=== PATIENT | female | born 1975 | race Caucasian/White ===

== ENCOUNTER 2019-07-10 10:21 | Outpatient (CLI) | payer OTHER ==
[2019-07-10] MEDS ORDERED: None per pt (10:42)
[2019-07-10 11:16] LABS: BASOPHILS # (AUTO) 0.05 x10^3/uL (0-0.1); BASOPHILS % (AUTO) 1 % (0-1); EOSINOPHILS # (AUTO) 0.04 x10^3/uL (0-0.4); EOSINOPHILS % (AUTO) 0 % (1-7); LYMPHOCYTES # (AUTO) 1.39 x10^3/uL (1-3.4); LYMPHOCYTES % (AUTO) 15 % (22-44); MD NO; MEAN CORPUSCULAR HEMOGLOBIN 30.5 pg (27.0-34.8); MEAN CORPUSCULAR HGB CONC 32.7 g/dL (32.4-35.8); MEAN CORPUSCULAR VOLUME 93.3 fL (80-100); MEAN PLATELET VOLUME 9.8 fL (7.4-10.4); MONOCYTES # (AUTO) 0.69 x10^3/uL (0.2-0.8); MONOCYTES % (AUTO) 8 % (2-9); NEUTROPHILS # (AUTO) 6.92 x10^3/uL (1.8-6.8); NEUTROPHILS % (AUTO) 76 % (42-75); PLATELET COUNT 251 x10^3/uL (130-400); RED BLOOD COUNT 4.92 x10^6/uL (3.82-5.3); RED CELL DISTRIBUTION WIDTH 13.8 % (9.6-15.2)
[2019-07-10 11:21] LABS: MICROSCOPIC NOT IND
[2019-07-10 11:24] LABS: CULTURE INDICATED? NO
[2019-07-10 11:24] LABS: ALANINE AMINOTRANSFERASE 28 U/L (12-78); ALBUMIN 3.8 g/dL (3.4-5.0); ANION GAP 4 mmol/L (5-15); CHLORIDE 106 mmol/L (98-107); CREATININE 0.72 mg/dL (0.55-1.02)
[2019-07-10 11:29] LABS: ALKALINE PHOSPHATASE 74 U/L (45-117); BILIRUBIN,TOTAL 0.5 mg/dL (0.2-1.0); TOTAL PROTEIN 7.5 g/dL (6.4-8.2)
== END 2019-07-10 23:59 | disposition home or self-care (01) ==
LOC: STAR 10:21
PROVIDERS: ATTEND Obstetrics & Gynecology
DX: Z01.818 Encounter for other preprocedural examination (principal); N84.0 Polyp of corpus uteri; N92.0 Excessive and frequent menstruation with regular cycle
CPT/HCPCS: 36415; 80053; 81003; 84702; 85025

== ENCOUNTER 2019-07-18 05:37 | Day surgery (SDC) | payer OTHER ==
[~2019-07-18] VITALS: Ht 185.4 cm; Wt 106.0 kg
[~2019-07-18 05:37] MED LIST: None per pt
[2019-07-18 06:06] VITALS: BP 133/83
[2019-07-18] MEDS ORDERED: LACTATED RINGERS 1,000 ML IV SCH (06:07)
[2019-07-18] MEDS ORDERED: DIAZEPAM 5 MG TABLET ONE (06:23)
[2019-07-18] MEDS ORDERED: ACETAMINOPHEN 500 MG TABLET ONE (06:24)
[2019-07-18 06:28] LABS: HCG UR SG 1.024 (1.003-1.030)
[2019-07-18] MEDS ORDERED: ACETAMINOPHEN 500 MG TABLET PO ONE (06:30)
[2019-07-18] MEDS ORDERED: DIAZEPAM 5 MG TABLET PO ONE (06:30)
[2019-07-18] MEDS ORDERED: BUPIVACAINE/PF 0.25% ONE (06:52)
[2019-07-18] MEDS ORDERED: SILVER NITRATE STICK TP ONE (06:52)
[2019-07-18] MEDS ORDERED: MIDAZOLAM 1 MG/ML, 2ML ONE (06:53)
[2019-07-18] MEDS ORDERED: EPINEPHRINE 1 MG/ML, 1ML ONE (06:53)
[2019-07-18] MEDS ORDERED: FENTANYL PF 100 MCG/2ML ONE ×2 (06:53→07:51)
[2019-07-18] MEDS ORDERED: CEFAZOLIN 1,000 MG ONE (07:24)
[2019-07-18] MEDS ORDERED: GLYCOPYRROLATE 0.2MG/1ML, 5ML ONE (07:24)
[2019-07-18] MEDS ORDERED: DEXAMETHASONE 4 MG/ML, 1ML ONE (07:24)
[2019-07-18] MEDS ORDERED: KETOROLAC 30 MG/1 ML ONE (07:24)
[2019-07-18] MEDS ORDERED: SUCCINYLCHOLINE 20 MG/ML, 10ML ONE (07:24)
[2019-07-18] MEDS ORDERED: ROCURONIUM 10MG/ML,5ML ONE (07:24)
[2019-07-18] MEDS ORDERED: ONDANSETRON 2MG/ML, 2ML ONE (07:24)
[2019-07-18] MEDS ORDERED: PROPOFOL 10 MG/ML, 20ML ONE (07:24)
[2019-07-18] MEDS ORDERED: NEOSTIGMINE 1 MG/ML, 10ML ONE (07:24)
[2019-07-18] MEDS ORDERED: ONDANSETRON 2MG/ML, 2ML IV PRN (07:30)
[2019-07-18] MEDS ORDERED: HYDROmorphone 2 MG/ML, 1ML IVPush PRN (07:30)
[2019-07-18] MEDS ORDERED: DIAZEPAM 5 MG/ML, 2ML IVPush PRN (07:30)
[2019-07-18] MEDS ORDERED: OXYcodone 5 MG/5 ML ORAL.SOL UDC PO PRN (07:30)
[2019-07-18] MEDS ORDERED: FENTANYL PF 100 MCG/2ML IV PRN (07:30)
[2019-07-18] MEDS ORDERED: PROMETHAZINE 25 MG SUPP PR PRN (07:30)
[2019-07-18] MEDS ORDERED: PROMETHAZINE 25 MG/ML, 1ML IV PRN (07:30)
[2019-07-18] MEDS ORDERED: ONDANSETRON ODT 8 MG PO PRN (07:30)
[2019-07-18] MEDS ORDERED: LIDOCAINE 4%, 4 ML SYR/CANN TP ONE (07:33)
== END 2019-07-18 10:35 | disposition home or self-care (01) ==
LOC: OUT 05:37
PROVIDERS: ATTEND Obstetrics & Gynecology
DX: N92.0 Excessive and frequent menstruation with regular cycle (principal); N84.0 Polyp of corpus uteri; F12.90 Cannabis use, unspecified, uncomplicated; Z98.51 Tubal ligation status
CPT/HCPCS: 36415; 58563; 81025; 86850; 86900; 88305; J0171; J0690; J1100; J1885; J2250; J2405; J2704; J2710; J3010; J3490; J7120; J0330